=== PATIENT | male | born 1975 | race Caucasian/White ===

== ENCOUNTER 2022-09-22 18:32 | Emergency (ER) | payer OTHER ==
[2022-09-22] MEDS ORDERED: hydrOXYzine HCl 25 MG Tab PO ONE (19:10)
== END 2022-09-22 19:23 | disposition home or self-care (01) ==
LOC: VM.ED 18:32
DX: F41.9 Anxiety disorder, unspecified (principal)
CPT/HCPCS: 93005; 99283; A9270